=== PATIENT | female | born 1995 | race African-American/Black ===

== ENCOUNTER 2018-06-16 21:53 | Outpatient (CLI) | payer OTHER ==
[2018-06-16 23:05] LABS: APPEARANCE,URINE CLEAR; BILIRUBIN,URINE NEGATIVE (NEGATIVE); GLUCOSE, URINE NEGATIVE (NEGATIVE); KETONES,URINE NEGATIVE (NEGATIVE); LEUKOCYTE ESTERASE,URINE NEGATIVE (NEGATIVE); NITRITE,URINE NEGATIVE (NEGATIVE); PROTEIN,URINE NEGATIVE (NEGATIVE); URINE SPECIFIC GRAVITY 1.008; UROBILINOGEN,URINE NEGATIVE mg/dL (<2.0)
[2018-06-16 23:09] LABS: COLOR,URINE AMBER
[2018-06-16 23:16] LABS: URINE AMPHETAMINES SCREEN NEGATIVE; URINE BARBITURATES SCREEN NEGATIVE; URINE BENZODIAZEPINES SCREEN NEGATIVE; URINE COCAINE SCREEN NEGATIVE; URINE MARIJUANA (THC) SCREEN NEGATIVE; URINE METHADONE SCREEN NEGATIVE; URINE PHENCYCLIDINE SCREEN NEGATIVE
== END 2018-06-16 23:11 | disposition home or self-care (01) ==
LOC: LC 21:53
PROVIDERS: ATTEND Obstetrics & Gynecology
PROC: 4A1HXCZ Monitoring of Products of Conception, Cardiac Rate, External Approach (ICD-10-PCS; principal; 2018-06-16)
DX: Z34.92 Encounter for supervision of normal pregnancy, unspecified, second trimester (principal)
CPT/HCPCS: 80307; 81001

== ENCOUNTER 2018-09-16 02:49 | Inpatient (IN) | payer OTHER ==
[2018-09-16] MEDS ORDERED: RINGERS SOLUTION,LACTATED 1,000 ML IV PRN (03:16)
[2018-09-16] MEDS ORDERED: NORMAL SALINE 250 ML IV PRN (03:16)
[2018-09-16] MEDS ORDERED: RINGERS SOLUTION,LACTATED 1,000 ML IV ONE (03:16)
[2018-09-16] MEDS ORDERED: FENTANYL/BUPIVACAINE/NS/PF 300 MCG/150 ML RTUINJ EPI ONE (03:17)
[2018-09-16] MEDS ORDERED: MISOPROSTOL 0.2 MG TABLET ONE (03:17)
[2018-09-16] MEDS ORDERED: EPHEDRINE SULFATE INJ 50 MG/1 ML AMPULE ONE (03:17)
[2018-09-16] MEDS ORDERED: LIDOCAINE 1% INJ-PF (10 MG/ML) 30 ML SDV ONE (03:18)
[2018-09-16] MEDS ORDERED: OXYTOCIN/NORMAL SALINE 20 UNIT/1,000 ML RTUINJ ONE (03:18)
[2018-09-16] MEDS ORDERED: BUPIVACAINE HCL 0.5 % INJ/PF 30 ML SDV ONE (03:18)
[2018-09-16 03:46] LABS: ABSOLUTE BASOPHILS # (AUTO) 0.1 10^3/uL (0.0-0.2); ABSOLUTE LYMPHOCYTES (AUTO) 1.7 10^3/uL (0.5-4.7); ABSOLUTE MONOCYTES (AUTO) 0.6 10^3/uL (0.1-1.4); ABSOLUTE NEUT (AUTO) 5.1 10^3/uL (1.7-8.2); BASOPHILS % (AUTO) 0.7 % (0-2); EOSINOPHILS % (AUTO) 0.6 % (0-6); HEMATOCRIT 31.9 % (36.0-47.0); LYMPHOCYTES % (AUTO) 22.3 % (13-45); MEAN CORPUSCULAR HEMOGLOBIN 33.5 pg (27.0-33.4); MEAN CORPUSCULAR HGB CONC 34.4 g/dL (32.0-36.0); MEAN CORPUSCULAR VOLUME 97 fl (80-97); MONOCYTES % (AUTO) 8.2 % (3-13); PLATELET COUNT 164 10^3/uL (150-450); RED BLOOD COUNT 3.29 10^6/uL (3.72-5.28); RED CELL DISTRIBUTION WIDTH 12.8 % (11.5-14.0); SEGMENTED NEUTROPHILS % (AUTO) 68.2 % (42-78); TOTAL CELLS COUNTED % (AUTO) 100 %; WHITE BLOOD COUNT 7.5 10^3/uL (4.0-10.5)
[2018-09-16 03:49] LABS: APPEARANCE,URINE SLIGHTLY-CLOUDY; BILIRUBIN,URINE NEGATIVE (NEGATIVE); COLOR,URINE YELLOW; GLUCOSE, URINE NEGATIVE (NEGATIVE); KETONES,URINE NEGATIVE (NEGATIVE); LEUKOCYTE ESTERASE,URINE NEGATIVE (NEGATIVE); NITRITE,URINE NEGATIVE (NEGATIVE); PROTEIN,URINE NEGATIVE (NEGATIVE); URINE SPECIFIC GRAVITY 1.015; UROBILINOGEN,URINE NEGATIVE mg/dL (<2.0)
[2018-09-16 04:09] LABS: URINE AMPHETAMINES SCREEN NEGATIVE; URINE BARBITURATES SCREEN NEGATIVE; URINE BENZODIAZEPINES SCREEN NEGATIVE; URINE COCAINE SCREEN NEGATIVE; URINE MARIJUANA (THC) SCREEN NEGATIVE; URINE METHADONE SCREEN NEGATIVE; URINE PHENCYCLIDINE SCREEN NEGATIVE
--- NOTE | 2018-09-16 06:52 | Admission Physical ---
Datetime Report Generated by CPN: 09/16/2018 06:51 CURRENT ADMISSION Chief Complaint: Uterine Contractions Indication for Induction: Not Applicable Admit Impression : Term, Intrauterine ; Active Labor; Intact Membranes Admit Plan: Admit to Unit; Initiate Labor Protocol; Initiate Protocol ALLERGIES Medication Allergies: No Medication Allergies: No Known Allergies (09/16/2018) Latex: Latex Allergies Food Allergies: N/A Environmental Allergies: N/A OBSTETRICAL HISTORY EDC: 09/27/2018 00:00 : 3 Para: 1 Term: 1 : 0 SAB: 1 IAB: 0 Ectopic: 0 Livin Cesareans: 1 VBACs: 0 Multiple Births: 0 Gestational Diabetes: No Rh Sensitization: No Incompetent Cervix: No AUREA: No Infertility: No ART Treatment: No Uterine Anomaly: No IUGR: No Hx Previous C/S: Yes Macrosomia: No Hx Loss/Stillborn: No PIH: No Hx : No Placenta Previa/Abruption: No Depression/PP Depression: No PTL/PROM: No Post Hemorrhage: No Current Procedures: Ultrasound; NST Obstetrical History Comments: G1- 2012 SAB 10weeks G2- 2015 C/Section 8lbs 1oz baby girl, 41 weeks, failure to progress G3- current SEE RECORDS Alcohol: No Marijuana : No Cocaine: No Other Illicit Drugs: No Cigarettes: Never Smoker. [id number] MEDICAL HISTORY Diabetes: No Blood Transfusion: No Pulmonary Disease (Asthma, TB): No Breast Disease: No Hypertension: No Holistic Specialist Surgery: No Heart Disease: No Hosp/Surgery: Yes Autoimmune Disorder: No Anesthetic Complications: No Kidney Disease: No Abnormal Pap Smear: No Neuro/Epilepsy: No Psychiatric Disorders: No Other Medical Diseases: No Hepatitis/Liver Disease: No Significant Family History: No Varicosities/Phlebitis: No Trauma/Violence : No Thyroid Dysfunction: No INFECTIOUS HISTORY Gonorrhea: No Genital Herpes: No Chlamydia: No Tuberculosis: No Syphilis: No Hepatitis: No HIV/AIDS Exposure: No Rash or Viral Illness: No HPV: No PHYSICAL EXAM General: Normal HEENT: Normal Neurologic: Normal Thyroid: Deferred Heart: Normal Lungs: Normal Breast: Deferred Back: Normal Abdomen: Normal Genitourinary Exam: Normal Extremities: Normal DTRs: Normal Pelvic Type: Adequate Vital Signs: Reviewed VAGINAL EXAM Dilatation: 4 Effacement: 100 Station: -2 Contraction Comments: q 2-3 MEMBRANES Membranes: Intact FETUS A EGA: 38.3 Monitoring: External US FHR- Baseline: 125 Variability: Moderate 6-25bpm Accelerations: 15X15 Decelerations: None FHR Category: Category I Presentation: Vertex Admit Comment: 23yo at 38+3ega presents for regular uterine ctx. H/o C/S x 1 for arrest of dilation at 6cm with chorio at 40- 41wks with 8# baby. Cvx 4/c/-2 on arrival and in active labor. She was counseled on arrival and desires TOLAC. R/b/A reviewed. GBS negative. Documented prior LTCS and patient good candidate for TOLAC attempt. T_C x 2 units to be held per protocol. EFW 7#14oz on 09/03. Anticipate . section for maternal/ indications. Pt desires epidural for analgesia. PLANS FOR LABOR AND DELIVERY Labor and Delivery: None Pain Management: Epidural Feeding Preference: Breast Benefit of Breast Feed Discussed: Yes Circumcision: N/A INFORMED CONSENT Informed Consent Obtained: Vaginal Delivery; Vaginal After ; Risks, Benefits and Alternatives Discussed Signature: with User ID: [email or web address]
[2018-09-16] MEDS ORDERED: DIPHENHYDRAMINE HCL 50 MG/ML VIAL ONE (06:55)
[2018-09-16] MEDS ORDERED: DIPHENHYDRAMINE HCL 50 MG/ML VIAL IV ONE (07:30)
[2018-09-16] MEDS ORDERED: NA PHOS,M-B/NA PHOS,DI-BA (ADULT) 133 ML ENEMA PR PRN (14:36)
[2018-09-16] MEDS ORDERED: PROMETHAZINE HCL 25 MG TABLET PO PRN (14:36)
[2018-09-16] MEDS ORDERED: PSEUDOEPHEDRINE HCL 30 MG TABLET PO PRN (14:36)
[2018-09-16] MEDS ORDERED: ACETAMINOPHEN WITH CODEINE #3 TABLET PO PRN ×2 (14:36)
[2018-09-16] MEDS ORDERED: DIBUCAINE 1% OINTMENT 28 GM TP PRN (14:36)
[2018-09-16] MEDS ORDERED: DIPH/PERTUSS(ACELL)/TETANUS VAC/PF 0.5 ML SYR (>=10YO) IM PRN (14:36)
[2018-09-16] MEDS ORDERED: OXYTOCIN/NORMAL SALINE 20 UNIT/1,000 ML RTUINJ IV PRN (14:36)
[2018-09-16] MEDS ORDERED: MAGNESIUM HYDROXIDE SUSP 30 ML UDCUP PO PRN (14:36)
[2018-09-16] MEDS ORDERED: ZOLPIDEM TARTRATE 5 MG TABLET PO PRN (14:36)
[2018-09-16] MEDS ORDERED: PROMETHAZINE HCL INJ 25 MG/1 ML VIAL IV PRN (14:36)
[2018-09-16] MEDS ORDERED: PROMETHAZINE HCL 25 MG SUPP.RECT PR PRN (14:36)
[2018-09-16] MEDS ORDERED: MEASLES,MUMPS&RUBELLA VACC/PF 0.5 ML VIAL SUBCUT PRN (14:36)
[2018-09-16] MEDS ORDERED: BENZOCAINE/MENTHOL AEROSOL SPRAY 56 ML TOP PRN (14:36)
[2018-09-16] MEDS ORDERED: GLYCERIN/WITCH HAZEL LEAF 1 EACH MED..PAD TP PRN (14:36)
[2018-09-16] MEDS ORDERED: ACETAMINOPHEN 650 MG SUPP.RECT PR PRN (14:36)
[2018-09-16] MEDS ORDERED: DIPHENHYDRAMINE HCL 25 MG CAPSULE PO PRN (14:36)
[2018-09-16] MEDS ORDERED: IBUPROFEN 800 MG TABLET ONE (15:20)
--- NOTE | 2018-09-16 15:20 | Warning Signs in Babies ---
VOD Warning Signs Datetime Report Generated by [facility]: 09/16/2018 15:19 VOD#608 -Warning Signs in Babies: Viewed with Parent(s)/Family (06/16/2018 21:58:Fiona Doe)
--- NOTE | 2018-09-16 16:11 | Delivery Summary ---
Del Sum A-C Datetime Report Generated by CPN: 09/16/2018 16:11 DELIVERY PERSONNEL DELIVERY PERSONNEL: [id number] Delivery Doctor:: Nya Lambert CNM Nurse Heel Burnisher Certified:: Nya Lambert CNM Labor and Delivery Nurse:: Fiona Doe RNblueprinting and photocopy supervisor Nurse:: Giovanna Peñaloza RN Nursery Nurse:: Jerrell Hawk RN Fluid Power Mechanic/FOUNTAIN OPERATOR: Soumya Knox CST Additional Personnel: : Suzanne Gee RN MATERNAL INFORMATION Delivery Anesthesia: Local; Epidural (Annotations: Data stored by CPN on behalf of user) Medications After Delivery: Pitocin Bolus-Please Comment Meds After Delivery Comment: Pitocin 20mu in 1000L LR Maternal Complications: Other Complication Details: Provider Comments: ROP VIABLE FEMALE INFANT WITH SPONTANEOUS CRY. CORD DOUBLE CLAMPED AND CUT. SPONTANEOUS INTACT PLACENTA WITH 3VC. REPAIR NOTED ABOVE. MOTHER AND STABLE IN L_D #5. LABOR SUMMARY EDC: 09/27/2018 00:00 No. Babies in Womb: 1 Attempted: Yes Labor Anesthesia: Epidural LABOR INFORMATION Reason for Induction: Not Applicable Onset of Labor: 09/16/2018 03:04 Complete Dilatation: 09/16/2018 11:33 Oxytocin: Augmentation Group B Beta Strep: Negative (Annotations: Data stored by CPN on behalf of user) Antibiotics # of Doses: 0 Steroids Given: None Reason Steroids Not Administered: Not Applicable MEMBRANES Membranes Rupture Method: Spontaneous Rupture of Membranes: 09/16/2018 05:41 Length of Rupture (hr): 7.90 Amniotic Fluid Color: Clear Amniotic Fluid Amount: Moderate Amniotic Fluid Odor: Normal STAGES OF LABOR Stage 1 hr: 8 Stage 1 min: 29 Stage 2 hr: 2 Stage 2 min: 2 Stage 3 hr: 0 Stage 3 min: 5 Total Time in Labor hr: 10 Total Time in Labor min: 36 VAGINAL DELIVERY Episiotomy: None Laceration #1: Perineal Laceration Extension #1: Second Degree Other Laceration: labial-right, extension into posterior vagina Laceration Repair: Yes Laceration Repair Note: repaired lacerations with 2.0 chromic under epidural and local anesthesia Sponge Count Correct: N/A Sharps Count Correct: N/A CSECTION DELIVERY Primary Indication: N/A Secondary Indication: N/A CSection Incidence: N/A Labor: N/A Elective: N/A CSection Incision: N/A BABY A INFORMATION Infant Delivery Date/Time: 09/16/2018 13:35 Method of Delivery: Vaginal Born in Route : No : Successful Forceps: N/A Vacuum Extraction: N/A Shoulder Dystocia : No PRESENTATION/POSITION BABY A Presentation: Cephalic Cephalic Presentation: Vertex Vertex Position: Right Occipital Posterior Breech Presentation: N/A PLACENTA INFORMATION BABY A Placenta Delivery Time : 09/16/2018 13:40 Placenta Method of Delivery: Spontaneous Placenta Status: Delivered SCORES BABY A Heart Rate 1 min: >100 bpm Resp Effort 1 min: Good Cry Reflex Irritability 1 min: Cough or Sneeze or Pulls Away Muscle Tone 1 min: Active Motion Color 1 min: Blue/Pale Resuscitation Effort 1 min: Tactile Stimulation SCORE 1 MIN: 8 Heart Rate 5 min: >100 bpm Resp Effort 5 min: Good Cry Reflex Irritability 5 min: Cough or Sneeze or Pulls Away Muscle Tone 5 min: Active Motion Color 5 min: Blue/Pale Resuscitation Effort 5 min: Tactile Stimulation SCORE 5 MIN: 8 INFANT INFORMATION BABY A Gestational Age at Delivery: 38.3 Gestational Status: Early Term- 37- 38.6 Weeks Infant Outcome : Liveborn Condition : Stable Sex: Female IDENTIFICATION BABY A Infant Verification Date/Time: 09/16/2018 14:37 ID Band Number: [id number] Mother's Name Verified: Yes RN Verifying : CPaulette Peñaloza, RN/ S. Doe, RN WEIGHT/LENGTH BABY A Infant Birthweight (gm): 3464 Weight (lb): 7 Infant Weight (oz): 10 Length (in): 20.00 Length (cm): 50.80 CORD INFORMATION BABY A No. Cord Vessels: 3 Nuchal Cord : N/A Cord Blood Taken: Yes-For Eval (Mom's Blood Type - or O+) Suction: Mouth; Nose ASSESSMENT BABY A Infant Complications: None Physical Findings at Delivery: Caput Succedaneum; Molding of the Head Respirations: Appears Normal Skin to Skin: Yes Skin to Skin Time (min): 60 Care By: Aniket Hawk RN Transferred To: Remains with Mother BABY B INFORMATION : N/A SIGNATURES Assignment: Iain Persaud MD Signature: with User ID: [email or web address] : with User ID: [email or web address] : I was personally available for consultation and serving as supervising physician for the MLP.
[2018-09-16] MEDS: FERROUS SULFATE 325 MG TABLET PO SCH (17:49)
[2018-09-16] MEDS: DOCUSATE SODIUM 100 MG CAPSULE PO SCH (17:49)
[2018-09-16] MEDS: FAMOTIDINE 20 MG TABLET PO SCH (22:02)
[2018-09-16] MEDS: IBUPROFEN 800 MG TABLET PO SCH (22:02)
[2018-09-17] MEDS: IBUPROFEN 800 MG TABLET PO SCH ×3 (06:11→21:20)
[2018-09-17 08:23] LABS: HEMATOCRIT 29.4 % (36.0-47.0); MEAN CORPUSCULAR HEMOGLOBIN 33.3 pg (27.0-33.4); MEAN CORPUSCULAR HGB CONC 33.9 g/dL (32.0-36.0); MEAN CORPUSCULAR VOLUME 98 fl (80-97); PLATELET COUNT 135 10^3/uL (150-450); RED BLOOD COUNT 2.99 10^6/uL (3.72-5.28); RED CELL DISTRIBUTION WIDTH 12.9 % (11.5-14.0)
[2018-09-17 08:27] LABS: WHITE BLOOD COUNT 18.1 10^3/uL (4.0-10.5)
[2018-09-17] MEDS: DOCUSATE SODIUM 100 MG CAPSULE PO SCH ×2 (10:33→17:14)
[2018-09-17] MEDS: FAMOTIDINE 20 MG TABLET PO SCH ×2 (10:33→21:19)
[2018-09-17] MEDS: SENNOSIDES/DOCUSATE 8.6-50 MG 1 EACH TABLET PO SCH (10:33)
[2018-09-17] MEDS: FERROUS SULFATE 325 MG TABLET PO SCH ×2 (10:33→17:14)
[2018-09-17] MEDS: PRENATAL VITAMIN W DHA CAPSULE PO SCH (10:33)
--- NOTE | 2018-09-17 11:20 | PDOC PROGRESS REPORT ---
Subjective-OB Progress Note for:: 09/17/18 Subjective: 23yo G3 now P3 s/p ppd 1. Pt. ambulating, voiding and without difficulty. Reports pain well controlled with medication. Denies concerns at this time. Bonding well with baby. Physical Exam (OB) Vital Signs: Temp Pulse Resp BP Pulse Ox 98.7 F 73 15 110/55 L 100 09/17/18 08:25 09/17/18 08:25 09/17/18 08:25 09/17/18 08:25 09/17/18 08:25 Intake & Output 09/16/18 09/17/18 09/18/18 06:59 06:59 06:59 Weight 84.1 kg - General General Appearance: Appears well In distress: None - PIH/Pre-Eclampsia Headache: Absent Epigastric Pain: No Visual Changes: No - Episiotomy/Laceration Site Condition: Well Approximated, Edematous - Lochia Lochia Amount: Scant < 10 ml Lochia Color: Rubra/Red - Abdomen Description: Soft Hernia Present: No Fundal Description: Firm, Midline Fundal Height: u/u - u/2 - Respiratory Respiratory Status: No respiratory distress - Extremities Upper extremity: Normal inspection Lower extremities: Normal inspection - Neurological Cognition: Normal Orientation: AAOx4 - Psychological Associated symptoms: Normal affect, Normal mood Objective-Diagnostic Laboratory: 09/17/18 07:51 09/17/18 07:51 WBC 18.1 H D RBC 2.99 L Hgb 10.0 L Hct 29.4 L MCV 98 H MCH 33.3 MCHC 33.9 RDW 12.9 Plt Count 135 L Assessment and Plan(PN) - Assessment and Plan (1) , delivered, current hospitalization Is this a current diagnosis for this admission?: Yes Plan: Routine pp care (2) Acute blood loss anemia Is this a current diagnosis for this admission?: Yes Plan: Increase dietary iron and FeSO4 BID. (3) Labial abrasion, delivered, current hospitalization Is this a current diagnosis for this admission?: Yes Plan: Monitor for s/s of infection. (4) High vaginal laceration during delivery, delivered Is this a current diagnosis for this admission?: Yes Plan: Monitor for s/s of infection. (5) Active labor at term Is this a current diagnosis for this admission?: Yes Plan: delivered (6) History of section, low transverse Is this a current diagnosis for this admission?: Yes Plan: delivered via - Time Spent with Patient Time with patient: Less than 15 minutes Medications reviewed and adjusted accordingly: Yes - Disposition Anticipated Discharge: Home Within: within 24 hours
[2018-09-18] MEDS: IBUPROFEN 800 MG TABLET PO SCH ×2 (05:09→13:09)
--- NOTE | 2018-09-18 08:49 | PDOC PROGRESS REPORT ---
Subjective-OB Progress Note for:: 09/18/18 Subjective: Ready to go home. Physical Exam (OB) Vital Signs: Temp Pulse Resp BP Pulse Ox 98.1 F 85 18 109/56 L 100 09/17/18 19:33 09/17/18 19:33 09/17/18 19:33 09/17/18 19:33 09/17/18 19:33 - PIH/Pre-Eclampsia DTR's: 2 + Clonus: Negative Headache: Absent Epigastric Pain: No Visual Changes: No - Lochia Lochia Amount: Scant < 10 ml Lochia Color: Rubra/Red - Abdomen Description: Tender, Soft, Round Hernia Present: No Bowel Sounds: Normoactive Flatus Presence: Present Stool: Yes Fundal Description: Firm, Midline Fundal Height: u/u - u/2 Objective-Diagnostic Laboratory: 09/17/18 07:51 Assessment and Plan(PN) - Time Spent with Patient Medications reviewed and adjusted accordingly: Yes - Disposition Anticipated Discharge: Home
--- NOTE | 2018-09-18 08:54 | PDOC DISCHARGE SUMMARY ---
Final Diagnosis Discharge Date: 09/18/18 - Final Diagnosis (1) Active labor at term Is this a current diagnosis for this admission?: Yes (2) Acute blood loss anemia Is this a current diagnosis for this admission?: Yes (3) High vaginal laceration during delivery, delivered Is this a current diagnosis for this admission?: Yes (4) History of section, low transverse Is this a current diagnosis for this admission?: Yes (5) Labial abrasion, delivered, current hospitalization Is this a current diagnosis for this admission?: Yes (6) , delivered, current hospitalization Is this a current diagnosis for this admission?: Yes Discharge Data - Discharge Medication Home Medications: Prenat 115/Iron Fum/Folic/Dss [ 19 Tablet] 1 tab PO DAILY 09/16/18 Ferrous Sulfate [Feosol 325 mg Tablet] 325 mg PO BID tablet 09/18/18 Gestational Age: 38.3 wks Reason(s) for Admission: Onset of Labor Procedures: Ultrasound Intrapartum Procedure(s): Spontaneous Vaginal Delivery Complication(s): Laceration-Vaginal, Laceration-Perineal, Laceration- Labial Laceration-Degree: 2nd - Data Baby 1 Female at 1 minute: 8 at 5 minutes: 8 Weight: 3.459 kg Home with Mother: Yes Complications: No - Diagnosis Test Laboratory: Temp Pulse Resp BP Pulse Ox 98.1 F 85 18 109/56 L 100 09/17/18 19:33 09/17/18 19:33 09/17/18 19:33 09/17/18 19:33 09/17/18 19:33 09/16/18 09/16/18 09/17/18 02:58 03:32 07:51 RBC 3.29 L 2.99 L Hgb 11.0 L 10.0 L Hct 31.9 L 29.4 L Urine Opiates Screen NEGATIVE - Discharge information/Instructions Discharge Activity: Activity As Tolerated, Balance Activity w/Rest, Pelvic Rest , Slowly Increase Activity, No tub bath Discharge Diet: Regular Disposition: HOME, SELF-CARE Follow up with: [facility] in: 4, Weeks
[2018-09-18 08:55] VITALS: BP 109/55
[2018-09-18 09:55] LABS: HEMATOCRIT 28.9 % (36.0-47.0); HEMOGLOBIN 9.9 g/dL (12.0-15.5); MEAN CORPUSCULAR HEMOGLOBIN 33.6 pg (27.0-33.4); MEAN CORPUSCULAR HGB CONC 34.2 g/dL (32.0-36.0); MEAN CORPUSCULAR VOLUME 98 fl (80-97); PLATELET COUNT 142 10^3/uL (150-450); RED BLOOD COUNT 2.94 10^6/uL (3.72-5.28); RED CELL DISTRIBUTION WIDTH 12.9 % (11.5-14.0); WHITE BLOOD COUNT 11.6 10^3/uL (4.0-10.5)
[2018-09-18] MEDS: SENNOSIDES/DOCUSATE 8.6-50 MG 1 EACH TABLET PO SCH (09:58)
[2018-09-18] MEDS: FERROUS SULFATE 325 MG TABLET PO SCH (09:58)
[2018-09-18] MEDS: DOCUSATE SODIUM 100 MG CAPSULE PO SCH (09:58)
[2018-09-18] MEDS: PRENATAL VITAMIN W DHA CAPSULE PO SCH (09:58)
[2018-09-18] MEDS: FAMOTIDINE 20 MG TABLET PO SCH (09:58)
== END 2018-09-18 14:00 | disposition home or self-care (01) | DRG 806 ==
LOC: LC 02:49 → LR 03:15 → 2S 16:07
PROVIDERS: ADMIT Obstetrics & Gynecology Gynecology; ATTEND Obstetrics & Gynecology Gynecology
PROC: 10E0XZZ Delivery of Products of Conception, External Approach (ICD-10-PCS; principal; 2018-09-16)
PROC: 0KQM0ZZ Repair Perineum Muscle, Open Approach (ICD-10-PCS; 2018-09-16)
DX: O41.1230 Chorioamnionitis, third trimester, not applicable or unspecified (principal); D62 Acute posthemorrhagic anemia; Z37.0 Single live birth; O34.211 Maternal care for low transverse scar from previous cesarean delivery; N85.8 Other specified noninflammatory disorders of uterus; O70.1 Second degree perineal laceration during delivery; O99.02 Anemia complicating childbirth; Z3A.38 38 weeks gestation of pregnancy
CPT/HCPCS: 36415; 80307; 81005; 85025; 85027; 86592; 86850; 86900; 86901; 86920; 94760; J1200; J2590; J3010; J3490